=== PATIENT | female | born 1990 | race Caucasian/White ===

== ENCOUNTER 2017-12-25 07:15 | Inpatient (IN) | payer BC ==
[~2017-12-25] VITALS: Ht 175.3 cm; Wt 110.2 kg
[2017-12-25] VITALS (17 sets, daily range): BP systolic 107–129; BP diastolic 57–76
[2017-12-25] MEDS ORDERED: ANIMAL CHEWS1 EACH PO (08:02)
[2017-12-25 09:12] LABS: BASOPHIL (%) 0.5 % (0-1); BASOPHIL COUNT 0.1 K/uL (0-0.1); EOSINOPHIL (%) 2.5 % (0-5); EOSINOPHIL COUNT 0.3 K/uL (0-0.3); HEMATOCRIT 35.9 % (36.0-46.0); IMMATURE GRANULOCYTE (%) 0.8 % (0.0-0.7); LYMPHOCYTE (%) 22.3 % (15-42); LYMPHOCYTE COUNT 2.2 K/uL (1.0-2.8); MCH 29.2 PG (29.0-34.0); MCHC 33.4 G/DL (30.0-36.0); MCV 87.3 FL (83-99); MONOCYTE (%) 11.4 % (3-12); MONOCYTE COUNT 1.1 K/uL (0-0.8); NEUTROPHIL (%) 62.5 % (45-76); NEUTROPHIL COUNT 6.3 K/uL (1.8-6.4); PLATELET COUNT 226 K/uL (156-360); RBC DIS.WIDTH-CV 13.4 % (11.8-14.6); RBC DIS.WIDTH-SD 42.8 % (39-53); RED BLOOD COUNT 4.11 M/uL (3.80-5.20)
[2017-12-25] MEDS ORDERED: MOTRIN800 MG PO (16:44)
[2017-12-26 23:26] VITALS: BP 113/71
[2017-12-27 07:00] VITALS: BP 94/54
== END 2017-12-27 16:54 | disposition home or self-care (01) | DRG 767 ==
LOC: LDRP-OP 07:15 → 2WEST 07:16 → LDRP-OP 01-18 17:39
PROVIDERS: Nurse Practitioner
DX: O69.1XX0 Labor and delivery complicated by cord around neck, with compression, not applicable or unspecified (principal); O73.0 Retained placenta without hemorrhage; O75.89 Other specified complications of labor and delivery; O48.0 Post-term pregnancy; O99.824 Streptococcus B carrier state complicating childbirth; O99.214 Obesity complicating childbirth; E66.9 Obesity, unspecified; Z68.28 Body mass index [BMI] 28.0-28.9, adult; Z3A.41 41 weeks gestation of pregnancy; Z37.0 Single live birth
CPT/HCPCS: 85025; J2540; J7120